=== PATIENT | female | born 1965 | race Caucasian/White ===

== ENCOUNTER 2021-10-12 10:08 | Emergency (ER) | payer SELFPAY ==
[~2021-10-12] VITALS: Ht 157.5 cm; Wt 53.6 kg
[~2021-10-12 10:08] MED LIST: DIVA-80 PO; DIVA500T69 PO; GABA-1181 PO; GABA300C PO; OLAN10TA26 PO
[2021-10-12 11:39] LABS: BASOPHILS % (AUTO) 0.3 % (0.0-2.0); EOSINOPHILS % (AUTO) 0.2 % (1.0-6.0); HEMATOCRIT 53.1 % (36-46); HEMOGLOBIN 17.5 g/dL (12.0-16.0); LYMPHOCYTES # (AUTO) 1.5 K/uL (1.0-4.8); LYMPHOCYTES % (AUTO) 16.9 % (22.0-44.0); MEAN CORPUSCULAR HEMOGLOBIN 26.8 pg (26.0-34.0); MEAN CORPUSCULAR VOLUME 81 fL (80-100); MONOCYTES # (AUTO) 0.5 K/uL (0.1-1.0); MONOCYTES % (AUTO) 5.5 % (2.0-9.0); NEUTROPHILS % (AUTO) 77.1 % (40.0-70.0); PLATELET COUNT (AUTO) 274 K/uL (150-450); RED BLOOD CELL COUNT(AUTO) 6.52 MIL/uL (4.00-5.20); RED CELL DISTRIBUTION WIDTH 15.7 % (11.5-14.5)
[2021-10-12 11:51] LABS: CALCIUM, TOTAL 10.3 mg/dL (8.8-10.5); CREATININE 0.97 mg/dL (0.60-1.30); POTASSIUM 3.3 mmol/L (3.5-5.1)
[2021-10-12 11:53] LABS: PROTHROMBIN TIME 10.7 SEC (9.4-11.6)
[2021-10-12 11:58] LABS: ALBUMIN 4.5 g/dL (3.4-5.0); BILIRUBIN,TOTAL 2.4 mg/dL (0.1-1.0); TOTAL PROTEIN, SERUM 10.2 g/dL (6.4-8.2)
[2021-10-12] MEDS ORDERED: SODIUM CHLORIDE 0.9% 1,000 ML IV ONE (13:45)
[2021-10-12] MEDS ORDERED: LABETALOL HCL 5 MG/ML 20 ML VIAL IVP ONE (14:45)
[2021-10-12 16:03] VITALS: BP 197/104
== END 2021-10-12 16:34 | disposition home or self-care (01) ==
LOC: EMS 10:10
DX: F11.23 Opioid dependence with withdrawal (principal); E86.0 Dehydration; F15.10 Other stimulant abuse, uncomplicated; I10 Essential (primary) hypertension; F10.20 Alcohol dependence, uncomplicated; I50.9 Heart failure, unspecified; F17.210 Nicotine dependence, cigarettes, uncomplicated; Z59.00 Homelessness unspecified
CPT/HCPCS: 99284; 96374; 96361; 80053; 83880; 85025; 85610; 85730; 36415; 93005; J3490; J7030